=== PATIENT | female | born 1945 | race Caucasian/White ===

== ENCOUNTER 2022-01-16 13:59 | Outpatient (CLI) | payer MEDICARE | END 2022-01-16 14:00 | disposition home or self-care (01) | LOC: TBSIIMAG 13:59 | PROVIDERS: ATTEND Orthopaedic Surgery | DX: M25.551 Pain in right hip (principal); C79.51 Secondary malignant neoplasm of bone; M89.9 Disorder of bone, unspecified ==

== ENCOUNTER → 2022-01-31 | Outpatient (CLI) | payer MEDICARE | LOC: PET 11:00 | PROVIDERS: ATTEND Internal Medicine Hematology & Oncology | DX: C50.912 Malignant neoplasm of unspecified site of left female breast (principal); C79.51 Secondary malignant neoplasm of bone; C77.9 Secondary and unspecified malignant neoplasm of lymph node, unspecified; C78.00 Secondary malignant neoplasm of unspecified lung | CPT/HCPCS: 78815; A9552 ==